=== PATIENT | female | born 1965 | race Caucasian/White ===

== ENCOUNTER 2019-04-16 12:16 | Emergency (ER) | payer OTHER ==
--- OUTSIDE RECORDS SUMMARY | 2019-04-16 12:28 | XMS REPORT ---
:1965 [facility] Address [address] [place] [address] Dr. Knight [address] [place] [id number] Care Team Providers Name Role Phone Unavailable Unavailable Unavailable Problems This patient has no known problems. Allergies, Adverse Reactions, Alerts This patient has no known allergies or adverse reactions. Medications This patient has no known medications.
[2019-04-16 13:22] LABS: Absolute Lymphocytes (CBC) 1.1 K/uL (0.7-4.9); Absolute Monocytes 0.9 K/uL (0.1-1.3); Absolute Neutrophil 5.8 K/uL (1.8-8.0); Basophils % 0.2 % (0-1.3); Eosinophils % 2.8 % (0-4.4); Hematocrit 37.4 % (36.0-45.0); Lymphocytes % 13.7 % (15.3-44.8); MPV 7.5 fL (7.6-11.3); Monocytes % 10.7 % (3.3-12.3); RBC Red Blood Cell Count 4.41 M/uL (3.86-4.86)
[2019-04-16 13:38] LABS: Potassium 3.4 mmol/L (3.5-5.1)
[2019-04-16 14:12] LABS: Urine Amorphous Sediment 2+ /HPF (NONE SEEN); Urine Bacteria NONE SEEN /HPF (<20); Urine RBC NONE SEEN /HPF (NONE SEEN)
[2019-04-16 14:13] LABS: Urine Culture Reflex Order NOT NEEDED
--- NOTE | 2019-04-16 14:45 | EDPHYS ---
Physician Documentation [facility] Name: Nette Polk Age: 53 yrs Sex: Female : 1965 Arrival Date: 04/16/2019 Time: 12:19 Bed 18 Private MD: Unknown, Unknown ED Physician Francis Jaimes HPI: 04/16 14:40 This 53 yrs old Female presents to ER via Ambulatory with complaints of rn Fever, abnormal labs. 14:40 The patient reports fever, that was measured at 100 degrees Fahrenheit. Onset: The rn symptoms/episode began/occurred 1 week(s) ago. Modifying factors: there are no obvious modifying factors. Severity of symptoms: At their worst the symptoms were mild in the emergency department the symptoms are unchanged. The patient has not experienced similar symptoms in the past. Reports has had low grade fever, tmax 100, denies headache/fever/cough/sore throat/vomiting/diarrhea/abd pain. No urinary symptoms. Seen at urgent clinic, told had elevated kidney function and recommended to f/u in ER. + decreased energy and generalized weakness. . 14:40 Reports normal urine output, and drinking a lot of water.. rn Historical: - Allergies: 12:39 No Known Allergies; iw - Home Meds: 12:39 losartan-hydrochlorothiazide 100-12.5 mg oral tab 1 tab once daily [Active]; Synthroid iw 37.5 mcg Oral once daily [Active]; omeprazole 40 mg Oral cpDR 1 cap once daily [Active]; multivitamin oral cap daily [Active]; Fish Oil oral oral daily [Active]; Vitamin D Oral 2000 unit daily [Active]; Iron CR 27 Oral daily [Active]; - PMHx: 12:39 Hypothyroidism; Hypertension; iw - PSHx: 12:39 Tonsillectomy; Hysterectomy; iw - Immunization history:: Adult Immunizations Adult Immunizations up to date. - Social history:: Smoking status: Patient/guardian denies using tobacco. - Ebola Screening: : Patient negative for fever greater than or equal to 101.5 degrees Fahrenheit, and additional compatible Ebola Virus Disease symptoms Patient denies exposure to infectious person Patient denies travel to an Ebola-affected area in the 21 days before illness onset No symptoms or risks identified at this time. - Family history:: not pertinent. - Hospitalizations: : No recent hospitalization is reported. ROS: 14:40 Constitutional: Negative for fever, chills, and weight loss, Eyes: Negative for injury, rn pain, redness, and discharge, ENT: Negative for injury, pain, and discharge, Neck: Negative for injury, pain, and swelling, Cardiovascular: Negative for chest pain, palpitations, and edema, Respiratory: Negative for shortness of breath, cough, wheezing, and pleuritic chest pain, Abdomen/GI: Negative for abdominal pain, nausea, vomiting, diarrhea, and constipation, MS/Extremity: Negative for injury and deformity, Skin: Negative for injury, rash, and discoloration, Neuro: Negative for headache, numbness, tingling, and seizure. Exam: 14:40 Constitutional: This is a well developed, well nourished patient who is awake, alert, rn and in no acute distress. Head/Face: Normocephalic, atraumatic. Eyes: Pupils equal round and reactive to light, extra-ocular motions intact. Lids and lashes normal. Conjunctiva and sclera are non-icteric and not injected. Cornea within normal limits. Periorbital areas with no swelling, redness, or edema. ENT: MMM Cardiovascular: Regular rate and rhythm. No pulse deficits. Respiratory: No increased work of breathing, no retractions or nasal flaring. Abdomen/GI: soft, non-tender Skin: Warm, dry, and no evidence of cellulitis. MS/ Extremity: Pulses equal, no cyanosis. Neurovascular intact. Full, normal range of motion. Equal circumference. Neuro: Awake and alert, GCS 15, oriented to person, place, time, and situation. Cranial nerves II-XII grossly intact. Motor strength 5/5 in all extremities. Sensory grossly intact. Cerebellar exam normal. Normal gait. Vital Signs: 12:34 BP 117 / 77; Pulse 86; Resp 16; Temp 98.2(O); Pulse Ox 98% on R/A; iw 14:37 BP 110 / 83; Pulse 65; Resp 18; Pulse Ox 100% on R/A; aj MDM: 12:41 Patient medically screened. rn 14:40 Differential diagnosis: viral Infection, UTI, Hernando, viral syndrome. Data reviewed: rn vital signs, nurses notes, lab test result(s), and as a result, I will discharge patient. Counseling: I had a detailed discussion with the patient and/or guardian regarding: the historical points, exam findings, and any diagnostic results supporting the discharge/admit diagnosis, lab results, the need for outpatient follow up, to return to the emergency department if symptoms worsen or persist or if there are any questions or concerns that arise at home. Special discussion: I discussed with the patient/guardian in detail that at this point there is no indication for admission to the hospital. It is understood, however, that if the symptoms persist or worsen the patient needs to return immediately for re-evaluation. ED course: Normal kidney function and eval here today, unclear what abnormal kidney function patient was told she had given lab results from urgent care clinic also show normal function. No abnormality in CBC either. . 04/16 12:51 Order name: CBC with Diff; Complete Time: 14:32 rn 04/16 12:51 Order name: Basic Metabolic Panel; Complete Time: 13:51 rn 04/16 12:51 Order name: IV Start; Complete Time: 13:14 rn 04/16 12:51 Order name: Urine Microscopic Only; Complete Time: 14:32 rn 04/16 12:51 Order name: Hernando Screen Profile; Complete Time: 14:39 rn 04/16 13:14 Order name: Urine Dipstick--Ancillary (enter results); Complete Time: 15:18 bd 04/16 12:51 Order name: Urine Dipstick-Ancillary (obtain specimen); Complete Time: 13:14 rn Administered Medications: No medications were administered Disposition: 04/16/19 14:44 Discharged to Home. Impression: Weakness. - Condition is Stable. - Discharge Instructions: Weakness, Fatigue. - Medication Reconciliation Form, Thank You Letter, Antibiotic Education, Prescription Opioid Use form. - Follow up: Private Physician; When: As needed; Reason: Recheck today's complaints, Re-evaluation by your physician. - Problem is an ongoing problem. - Symptoms have improved. Signatures: Dispatcher [employer] EDVickie Mathew RN RN aj Williams, Irene, RN RN iw Nieto, Roman, MD MD sane rn: (The following items were deleted from the chart) 14:42 14:40 Constitutional: Negative for fever, chills, and weight loss, rn rn 15:01 14:44 04/16/2019 14:44 Discharged to Home. Impression: Weakness. Condition is Stable. aj Forms are Medication Reconciliation Form, Thank You Letter, Antibiotic Education, Prescription Opioid Use. Follow up: Private Physician; When: As needed; Reason: Recheck today's complaints, Re-evaluation by your physician. Problem is an ongoing problem. Symptoms have improved. rn
--- NOTE | 2019-04-16 14:45 | ER ---
Nurse's Notes [facility] Name: Nette Polk Age: 53 yrs Sex: Female : 1965 Arrival Date: 04/16/2019 Time: 12:19 Bed 18 Private MD: Unknown, Unknown Diagnosis: Weakness Presentation: 04/16 12:34 Presenting complaint: Patient states: fever X 10 days, went to PCP yesterday, kidney iw function elevated, PCP suggested she come to ER, denies urinary symptoms, had a couple episodes of diarrhea over past 10 days. 12:34 Transition of care: patient was not received from another setting of care. Onset of iw symptoms was April 05, 2019. Risk Assessment: Do you want to hurt yourself or someone else? Patient reports no desire to harm self or others. Initial Sepsis Screen: Does the patient meet any 2 criteria? No. Patient's initial sepsis screen is negative. Does the patient have a suspected source of infection? No. Patient's initial sepsis screen is negative. Care prior to arrival: None. 12:34 Method Of Arrival: Ambulatory iw 12:34 Acuity: JORGE 3 iw 12:39 Note was prescribed a course of Bactrim for diarrhea episodes. iw Historical: - Allergies: 12:39 No Known Allergies; iw - Home Meds: 12:39 losartan-hydrochlorothiazide 100-12.5 mg oral tab 1 tab once daily [Active]; Synthroid iw 37.5 mcg Oral once daily [Active]; omeprazole 40 mg Oral cpDR 1 cap once daily [Active]; multivitamin oral cap daily [Active]; Fish Oil oral oral daily [Active]; Vitamin D Oral 2000 unit daily [Active]; Iron CR 27 Oral daily [Active]; - PMHx: 12:39 Hypothyroidism; Hypertension; iw - PSHx: 12:39 Tonsillectomy; Hysterectomy; iw - Immunization history:: Adult Immunizations Adult Immunizations up to date. - Social history:: Smoking status: Patient/guardian denies using tobacco. - Ebola Screening: : Patient negative for fever greater than or equal to 101.5 degrees Fahrenheit, and additional compatible Ebola Virus Disease symptoms Patient denies exposure to infectious person Patient denies travel to an Ebola-affected area in the 21 days before illness onset No symptoms or risks identified at this time. - Family history:: not pertinent. - Hospitalizations: : No recent hospitalization is reported. Screenin:13 Abuse screen: Denies threats or abuse. Denies injuries from another. Nutritional aj screening: No deficits noted. Tuberculosis screening: No symptoms or risk factors identified. Fall Risk None identified. Assessment: 13:13 General: Appears in no apparent distress. comfortable, Behavior is calm, cooperative, aj appropriate for age. Pain: Denies pain. Neuro: Level of Consciousness is awake, alert, obeys commands, Oriented to person, place, time, situation, Appropriate for age. Respiratory: Airway is patent Respiratory effort is even, unlabored, Respiratory pattern is regular, symmetrical. Derm: Skin is intact, is healthy with good turgor, Skin is pink, warm \T\ dry. normal. 15:00 Reassessment: Patient appears in no apparent distress at this time. No changes from aj previously documented assessment. Patient and/or family updated on plan of care and expected duration. Pain level reassessed. Patient is alert, oriented x 3, equal unlabored respirations, skin warm/dry/pink. Patient denies pain at this time. Patient states feeling better. Patient states symptoms have improved. Vital Signs: 12:34 BP 117 / 77; Pulse 86; Resp 16; Temp 98.2(O); Pulse Ox 98% on R/A; iw 14:37 BP 110 / 83; Pulse 65; Resp 18; Pulse Ox 100% on R/A; aj ED Course: 12:19 Patient arrived in ED. ag5 12:20 Unknown, Unknown is Private Physician. ag5 12:37 Triage completed. iw 12:39 Arm band placed on. iw 12:41 Francis Jaimes MD is Attending Physician. rn 12:42 Vickie White, RN is Primary Nurse. aj 13:13 Patient has correct armband on for positive identification. aj 13:13 Inserted saline lock: 20 gauge in right antecubital area, using aseptic technique. aj Blood collected. 14:32 Urine Dipstick--Ancillary (enter results) Sent. aj 15:00 No provider procedures requiring assistance completed. IV discontinued, intact, aj bleeding controlled, No redness/swelling at site. Pressure dressing applied. Administered Medications: No medications were administered Outcome: 14:44 Discharge ordered by . rn 15:00 Discharged to home ambulatory. aj 15:00 Condition: good 15:00 Discharge instructions given to patient, Instructed on discharge instructions, follow up and referral plans. Demonstrated understanding of instructions, follow-up care. 15:01 Patient left the ED. aj Signatures: Vickie White RN RN aj Williams, Irene, RN RN iw Nieto, Roman, MD MD rn Gaskin, Ajare ag5 Corrections: (The following items were deleted from the chart) 12:37 12:34 Presenting complaint: Patient states: fever X 10 days marlene rosario
[2019-04-16 14:59] LABS: Urine Blood NEGATIVE (NEG); Urine Glucose NEGATIVE (NEG); Urine Protein NEGATIVE (NEG)
== END 2019-04-16 15:01 | disposition home or self-care (01) ==
LOC: ER 12:16
DX: R53.1 Weakness (principal); I10 Essential (primary) hypertension; E03.9 Hypothyroidism, unspecified
CPT/HCPCS: 36415; 80048; 81003; 81015; 85025; 86308; 99283